=== PATIENT | female | born 1975 | race Caucasian/White ===

== ENCOUNTER 2016-07-22 13:03 | Emergency (ER) | payer MEDICAID ==
[~2016-07-22] VITALS: Ht 157.5 cm; Wt 74.6 kg
[~2016-07-22 13:03] MED LIST: TOPA100T8 PO; TOPI100 PO; Z.0.BCPILL PO
[2016-07-22 13:14] VITALS: BP 123/89; PULSE 86; RESP 18; TEMP 98.1; O2SAT 100
[2016-07-22] MEDS ORDERED: RELP40TA PO (14:07)
[2016-07-22] MEDS ORDERED: SEASTAB2 PO (14:07)
[2016-07-22] MEDS ORDERED: TOPA100T11 PO ×2 (14:07)
[2016-07-22] MEDS ORDERED: ORPH100T99 PO (14:35)
[2016-07-22] MEDS ORDERED: TYLETAB34 PO (14:35)
--- NOTE | 2016-07-22 14:39 | PD ---
HPI Chief Complaint: Headache Time Seen by Provider: 14:19 Travel History International Travel<30 days: No Contact w/Intl Traveler<30days: No Traveled to known affect area: No History of Present Illness HPI This patient complains of brief sharp shooting pains in the right side of her neck radiating up past her ear into her head. He literally lasts one or 2 seconds and resolves. Has been coming and going since last night. No injury. No fever. Symptoms severity is moderate. No alleviating factors PFSH Past Medical History Hx Anticoagulant Therapy: No Arthritis: No Asthma: No Autoimmune Disease: No Anxiety: No Depression: No Heart Rhythm Problems: No Cancer: No Cardiovascular Problems: No High Cholesterol: No Chemotherapy: No Chest Pain: No Congestive Heart Failure: No COPD: No Diabetes: No Diminished Hearing: No Endocrine: No Gastrointestinal Disorders: No GERD: No Genitourinary: No Headaches: No Hiatal Hernia: No Heparin Induced Thrombocytopen: No Hypertension: No Immune Disorder: No Implanted Vascular Access Dvce: No Kidney Stones: No Medical other: Yes (ITP) Musculoskeletal: No Neurologic: No Psychiatric: No Reproductive: No Respiratory: No Migraines: Yes Radiation Therapy: No Renal Failure: No Seizures: No Sickle Cell Disease: No Sleep Apnea: No Thyroid Disease: No Ulcer: No ?: Not LMP: Last week : 2 Para: 1 Miscarriage: 1 : 0 Past Surgical History Abdominal Surgery: No AICD: No Arteriovenous Shunt: No Cardiac Surgery: No Ear Surgery: No Endocrine Surgery: No Eye Surgery: No Genitourinary Surgery: No Gynecologic Surgery: No Insulin Pump: No Joint Replacement: No Neurologic Surgery: No Pacemaker: No Thoracic Surgery: No Other Surgery: No Social History Alcohol Use: No Tobacco Use: No Substance Use: No Allergies-Medications (Allergen,Severity, Reaction): Coded Allergies: No Known Allergies (Verified , 07/22/16) Reported Meds & Prescriptions Reported Meds & Active Scripts Active Tylenol-Codeine #3 (Acetaminophen-Codeine) 300-30 mg Tab 1 Tab PO Q6HR PRN Orphenadrine CR (Orphenadrine Citrate) 100 Mg Tab 100 Mg PO Q12HR Reported Relpax (Eletriptan) 40 Mg Tab 40 Mg PO ONCE PRN Topamax (Topiramate) 100 Mg Tab 150 Mg PO DAILY Topamax (Topiramate) 100 Mg Tab 100 Mg PO HS Seasonique (Levonorgestrel-Ethinyl Estradiol) 0.15-0.03-0.01 Mg Tab 1 Tab PO DAILY Review of Systems General / Constitutional: No: Fever HENT: Positive: Headaches Cardiovascular: No: Chest Pain or Discomfort Respiratory: No: Cough Physical Exam Narrative NEUROLOGICAL: Awake and alert. Pupils are equal round and reactive. Motor and sensory grossly within normal limits. Five out of 5 muscle strength in all muscle groups. Normal speech. NECK: Symmetrical appearance, midline trachea. No mass or crepitus. Thyroid without enlargement, tenderness, or mass. SKIN: Inspection shows no rash or ulcers. Palpation shows no induration or nodules. Data Data Last Documented VS Vital Signs Date Time Temp Pulse Resp B/P Pulse Ox O2 Delivery O2 Flow Rate FiO2 07/22/16 14:01 16 07/22/16 13:14 98.1 86 123/89 100 Orders Ketorolac Inj (Toradol Inj) (07/22/16 14:45) [facility] Medical Decision Making Medical Screen Exam Complete: Yes Emergency Medical Condition: Yes Medical Record Reviewed: Yes Differential Diagnosis Peripheral neuropathy, cluster headache, migraine Narrative Course I have reviewed the patient's electronic medical record. Patient is neurologically intact. No red flags to suggest emergent imaging is indicated This is a very atypical headache Sounds like neuropathic pain Gave her Toradol injection with prescription for both Tylenol 3 with codeine and Norflex Recommend primary care follow-up Diagnosis Primary Impression: Neuropathic pain Additional Instructions: The patient was advised to follow up with their physician and return if they worsen. The patient was warned about potential sedation for the medications they will receive on prescription. Med/Other Pt SpecificInfo: Prescription(s) given Scripts Acetaminophen-Codeine (Tylenol-Codeine #3)300-30 mg Tab1 Tab PO Q6HR PRN (PAIN) #15 TAB Ref 0 Prov:Obi House MD 07/22/16 Orphenadrine ER 12 HR (Orphenadrine CR)100 Mg [id number] Mg PO Q12HR #10 TAB Ref 0 Prov:Obi House MD 07/22/16 Disposition: 01 DISCHARGE HOME Condition: Stable Obi House MD Jul 22, 2016 14:39
[2016-07-22] MEDS ORDERED: KETOROLAC TROMETHAMINE 60 MG/2 ML (IM) VIAL IM ONE (14:45)
[2016-07-22 14:52] VITALS: BP 110/71
[2016-09-16] MEDS ORDERED: RELP40TA PO ×2 (13:36→13:42)
[2016-09-16] MEDS ORDERED: CITA20TA4 PO ×2 (13:39→13:42)
[2016-09-16] MEDS ORDERED: SUVO1TAB2 PO ×2 (13:40→13:42)
[2016-09-24] MEDS ORDERED: TOPA100T11 PO (14:10)
[2016-10-01] MEDS ORDERED: TOPI200 PO (14:42)
[2016-10-01] MEDS ORDERED: TOPA50TA7 PO (14:44)
[2016-10-16] MEDS ORDERED: SUMA50TA2 PO (13:56)
== END 2016-07-22 14:58 | disposition home or self-care (01) ==
LOC: PHED 13:03
DX: G62.9 Polyneuropathy, unspecified (principal)
CPT/HCPCS: 96372; 99283; J1885

== ENCOUNTER 2016-09-07 20:13 | Emergency (ER) | payer MEDICAID ==
[~2016-09-07] VITALS: Ht 157.5 cm; Wt 77.0 kg
[~2016-09-07 20:13] MED LIST changes: +ORPH100T99 PO; +RELP40TA PO; +SEASTAB2 PO; +TOPA100T11 PO; -TOPA100T8 PO; -TOPI100 PO; +TYLETAB34 PO; -Z.0.BCPILL PO
[2016-09-07 20:29] VITALS: BP 137/89; PULSE 86; RESP 18; TEMP 98.5; O2SAT 100
[2016-09-07] MEDS ORDERED: KETOROLAC TROMETHAMINE 30 MG/ML (IVP) VIAL IV PUSH ONE (21:30)
[2016-09-07] MEDS ORDERED: SODIUM CHLORIDE 0.9% FLUSH 10 ML FLUSH IVF PRN (21:30)
--- NOTE | 2016-09-07 21:46 | PD ---
HPI Chief Complaint: Headache Time Seen by Provider: 21:15 Travel History International Travel<30 days: No Contact w/Intl Traveler<30days: No Traveled to known affect area: No History of Present Illness HPI Patient is a 41-year-old female presents emergency department for evaluation of scalp pain. Patient states that she's had pain from the occipital region radiating around the right side of her scalp as well as down the right side of her neck. 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 She is not followed up with anyone else this has not recurred since initial visit May. Of note patient does have a history of ITP but denies any focalized weakness blurred vision blood in the stool easy bleeding or easy bruising. PFSH Past Medical History Hx Anticoagulant Therapy: No Arthritis: No Asthma: No Autoimmune Disease: No Anxiety: No Depression: No Heart Rhythm Problems: No Cancer: No Cardiovascular Problems: No High Cholesterol: No Chemotherapy: No Chest Pain: No Congestive Heart Failure: No COPD: No Diabetes: No Diminished Hearing: No Endocrine: No Gastrointestinal Disorders: No GERD: No Genitourinary: No Headaches: No Hiatal Hernia: No Heparin Induced Thrombocytopen: No Hypertension: No Immune Disorder: No Implanted Vascular Access Dvce: No Kidney Stones: No Musculoskeletal: No Neurologic: No Psychiatric: No Reproductive: No Respiratory: No Migraines: Yes Radiation Therapy: No Renal Failure: No Seizures: No Sickle Cell Disease: No Sleep Apnea: No Thyroid Disease: No Ulcer: No ?: Not : 2 Para: 1 Miscarriage: 1 : 0 Past Surgical History Abdominal Surgery: No AICD: No Arteriovenous Shunt: No Cardiac Surgery: No Ear Surgery: No Endocrine Surgery: No Eye Surgery: No Genitourinary Surgery: No Gynecologic Surgery: No Insulin Pump: No Joint Replacement: No Neurologic Surgery: No Pacemaker: No Thoracic Surgery: No Other Surgery: No Social History Alcohol Use: No Tobacco Use: No Substance Use: No Allergies-Medications (Allergen,Severity, Reaction): Coded Allergies: No Known Allergies (Verified , 09/07/16) Reported Meds & Prescriptions Reported Meds & Active Scripts Active Tylenol-Codeine #3 (Acetaminophen-Codeine) 300-30 mg Tab 1 Tab PO Q6HR PRN Orphenadrine CR (Orphenadrine Citrate) 100 Mg Tab 100 Mg PO Q12HR Reported Relpax (Eletriptan) 40 Mg Tab 40 Mg PO ONCE PRN Topamax (Topiramate) 100 Mg Tab 150 Mg PO DAILY Topamax (Topiramate) 100 Mg Tab 100 Mg PO HS Seasonique (Levonorgestrel-Ethinyl Estradiol) 0.15-0.03-0.01 Mg Tab 1 Tab PO DAILY Review of Systems Except as stated in HPI: all other systems reviewed are Neg Physical Exam Narrative GENERAL: Well-developed well-nourished in no apparent distress SKIN: Focused skin assessment warm/dry. HEAD: Atraumatic. Normocephalic. There is some tenderness to the palpation of the occipital scalp which produces a spasm of pain which lasts only for a few seconds. Patient states is consistent with her pain. EYES: Pupils equal and round. No scleral icterus. No injection or drainage. ENT: No nasal bleeding or discharge. Mucous membranes pink and moist. NECK: Trachea midline. No JVD. CARDIOVASCULAR: Regular rate and rhythm. No murmur appreciated. RESPIRATORY: No accessory muscle use. Clear to auscultation. Breath sounds equal bilaterally. GASTROINTESTINAL: Abdomen soft, non-tender, nondistended. Hepatic and splenic margins not palpable. MUSCULOSKELETAL: No obvious deformities. No clubbing. No cyanosis. No edema. NEUROLOGICAL: Awake and alert. Cranial nerves II through XII grossly intact and nonfocal, 5 out of 5 strength in all 4 extremities, pulses motor and sensory distally intact and equal bilaterally. Cerebellar testing normal. PSYCHIATRIC: Appropriate mood and affect; insight and judgment normal. Data Data Last Documented VS Vital Signs Date Time Temp Pulse Resp B/P Pulse Ox O2 Delivery O2 Flow Rate FiO2 09/07/16 22:24 88 18 130/80 98 09/07/16 21:56 Room Air 09/07/16 20:29 98.5 Orders Complete Blood Count With Diff (09/07/16 21:21) Basic Metabolic Panel (Bmp) (09/07/16 21:21) Ecg Monitoring (09/07/16 21:21) Iv Access Insert/Monitor (09/07/16 21:21) Oximetry (09/07/16 21:21) Sodium Chloride 0.9% Flush (Ns Flush) (09/07/16 21:30) Ketorolac Inj (Toradol Inj) (09/07/16 21:30) Labs Laboratory Tests Test 09/07/16 21:41 White Blood Count 7.1 TH/MM3 Red Blood Count 4.71 MIL/MM3 Hemoglobin 13.9 GM/DL Hematocrit 41.8 % Mean Corpuscular Volume 88.6 FL Mean Corpuscular Hemoglobin 29.5 PG Mean Corpuscular Hemoglobin 33.3 % Concent Red Cell Distribution Width 12.3 % Platelet Count 368 TH/MM3 Mean Platelet Volume 7.4 FL Neutrophils (%) (Auto) 48.9 % Lymphocytes (%) (Auto) 38.4 % Monocytes (%) (Auto) 9.1 % Eosinophils (%) (Auto) 2.7 % Basophils (%) (Auto) 0.9 % Neutrophils # (Auto) 3.5 TH/MM3 Lymphocytes # (Auto) 2.7 TH/MM3 Monocytes # (Auto) 0.6 TH/MM3 Eosinophils # (Auto) 0.2 TH/MM3 Basophils # (Auto) 0.1 TH/MM3 CBC Comment DIFF FINAL Differential Comment Sodium Level 146 MEQ/L Potassium Level 3.9 MEQ/L Chloride Level 113 MEQ/L Carbon Dioxide Level 21.8 MEQ/L Anion Gap 11 MEQ/L Blood Urea Nitrogen 16 MG/DL Creatinine 0.84 MG/DL Estimat Glomerular Filtration 75 ML/MIN Rate Random Glucose 81 MG/DL Calcium Level 8.5 MG/DL MDM Medical Decision Making Medical Screen Exam Complete: Yes Emergency Medical Condition: Yes Differential Diagnosis Scalp pain, migraine, tension headache, cluster headache. Narrative Course 41-year-old female presents emergency Department with scalp pain. She does have a history of migraines but states this feels different. Her pain is reproducible by palpation of her scalp. She also does have a history of ITP. Platelet count is within normal limits. She is given pain medicine in the emergency department and this relieved her pain. Discussed with her need follow -up with a pain management physician or neurologist for possible trigger point injections. 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 There is no indication for CT imaging at this time. She is stable for discharge. Diagnosis Primary Impression: Scalp pain Referrals: Dannie Finney MD Disposition: 01 DISCHARGE HOME Condition: Stable Osmani Matta MD Sep 07, 2016 21:46
[2016-09-07 21:52] LABS: AUTOMATED NEUTROPHIL # 3.5 TH/MM3 (1.8-7.7); BASOPHIL # 0.1 TH/MM3 (0-0.2); BASOPHIL % 0.9 % (0.0-2.0); EOSINOPHIL # 0.2 TH/MM3 (0-0.4); EOSINOPHIL % 2.7 % (0.0-4.0); HEMATOCRIT 41.8 % (35.0-46.0); HEMO FLAGS DIFF FINAL; LYMPH % 38.4 % (9.0-44.0); LYMPHOCYTE # 2.7 TH/MM3 (1.0-4.8); MEAN CELL VOLUME 88.6 FL (80.0-100.0); MEAN CORPUSCULAR HEMOGLOBIN 29.5 PG (27.0-34.0); MEAN CORPUSCULAR HGB CONC 33.3 % (32.0-36.0); MONO % 9.1 % (0.0-8.0); NEUT % 48.9 % (16.0-70.0); PLATELET COUNT 368 TH/MM3 (150-450); RED BLOOD COUNT 4.71 MIL/MM3 (4.00-5.30); RED CELL DISTRIBUTION WIDTH 12.3 % (11.6-17.2); WHITE BLOOD COUNT 7.1 TH/MM3 (4.0-11.0)
[2016-09-07 21:56] VITALS: O2SAT 100
[2016-09-07 21:58] LABS: POTASSIUM 3.9 MEQ/L (3.5-5.1)
[2016-09-07 22:03] LABS: BICARBONATE 21.8 MEQ/L (21.0-32.0)
[2016-09-07 22:24] VITALS: BP 130/80
[2016-09-16] MEDS ORDERED: RELP40TA PO ×2 (13:36→13:42)
[2016-09-16] MEDS ORDERED: CITA20TA4 PO ×2 (13:39→13:42)
[2016-09-16] MEDS ORDERED: SUVO1TAB2 PO ×2 (13:40→13:42)
[2016-09-24] MEDS ORDERED: TOPA100T11 PO (14:10)
[2016-10-01] MEDS ORDERED: TOPI200 PO (14:42)
[2016-10-01] MEDS ORDERED: TOPA50TA7 PO (14:44)
[2016-10-16] MEDS ORDERED: SUMA50TA2 PO (13:56)
== END 2016-09-07 22:54 | disposition home or self-care (01) ==
LOC: PHED 20:13
DX: R51 Headache (principal); M54.2 Cervicalgia; Z86.69 Personal history of other diseases of the nervous system and sense organs; Z86.2 Personal history of diseases of the blood and blood-forming organs and certain disorders involving the immune mechanism
CPT/HCPCS: 80048; 85025; 96374; 99283; J1885

== ENCOUNTER 2017-05-01 17:06 | Emergency (ER) | payer MEDICAID ==
[~2017-05-01] VITALS: Ht 157.5 cm; Wt 78.7 kg
[~2017-05-01 17:06] MED LIST changes: +BENZ100 PO; -ORPH100T99 PO; +OSEL75 PO; -RELP40TA PO; -SEASTAB2 PO; +SUMA50TA2 PO; -TOPA100T11 PO; +TOPA50TA7 PO; +TOPI200 PO; -TYLETAB34 PO
[2017-05-01 17:15] VITALS: BP 123/77; PULSE 103; RESP 16; TEMP 99.9; O2SAT 98
--- NOTE | 2017-05-01 17:28 | PD ---
HPI Chief Complaint: Cold / Flu Symptoms Time Seen by Provider: 17:19 Travel History International Travel<30 days: No Contact w/Intl Traveler<30days: No Traveled to known affect area: No History of Present Illness HPI 41-year-old female presents the emergency department with history of positive flu test on Friday on Tamiflu, complaining of worsening chest congestion, cough, and wheezing. She states dyspnea with exertion over the last 24 hours. She states her cough is nonproductive. Patient is a nonsmoker and has no history of asthma or bronchitis requiring an inhaler in the past. Patient sent off and on fevers but overall feels improved in regards to the flu other than the cough. She has no nausea or vomiting. She has no abdominal pain. She has no known drug allergies. PFSH Past Medical History Hx Anticoagulant Therapy: No Arthritis: No Asthma: No Autoimmune Disease: No Anxiety: No Depression: No Heart Rhythm Problems: No Cancer: No Cardiovascular Problems: No High Cholesterol: No Chemotherapy: No Chest Pain: No Congestive Heart Failure: No COPD: No Diabetes: No Diminished Hearing: No Endocrine: No Gastrointestinal Disorders: No GERD: No Genitourinary: No Headaches: No Hiatal Hernia: No Heparin Induced Thrombocytopen: No Hypertension: No Immune Disorder: No Implanted Vascular Access Dvce: No Kidney Stones: No Musculoskeletal: No Neurologic: No Psychiatric: No Reproductive: No Respiratory: No Migraines: Yes Radiation Therapy: No Renal Failure: No Seizures: No Sickle Cell Disease: No Sleep Apnea: No Thyroid Disease: No Ulcer: No ?: Not LMP: no menses has a IUD : 2 Para: 1 Miscarriage: 1 : 0 Past Surgical History Abdominal Surgery: No AICD: No Arteriovenous Shunt: No Cardiac Surgery: No Ear Surgery: No Endocrine Surgery: No Eye Surgery: No Genitourinary Surgery: No Gynecologic Surgery: No Insulin Pump: No Joint Replacement: No Neurologic Surgery: No Pacemaker: No Thoracic Surgery: No Other Surgery: No Social History Alcohol Use: No Tobacco Use: No Substance Use: No Allergies-Medications (Allergen,Severity, Reaction): Coded Allergies: No Known Allergies (Verified Allergy, Unknown, 05/01/17) Reported Meds & Prescriptions Reported Meds & Active Scripts Active Ventolin Hfa 18 GM Inh (Albuterol Sulfate) 90 Mcg/Act Aer 2 Puff INH Q4-6H PRN Prednisone 20 Mg Tab 20 Mg PO BID 5 Days Azithromycin 500 Mg Tab 500 Mg PO DAILY Tamiflu (Oseltamivir Phosphate) 75 Mg Cap 75 Mg PO BID Topamax (Topiramate) 200 Mg Tab 200 Mg PO BID Review of Systems General / Constitutional: Positive: Fever, Chills Eyes: No: Visual changes HENT: Positive: Rhinitis, Rhinorrhea, Congestion, No: Headaches, Vertigo, Lightheadedness, Sore Throat, Nosebleed, Neck Stiffness, Neck Pain, Earache Cardiovascular: No: Chest Pain or Discomfort Respiratory: Positive: Cough, Shortness of Breath, Wheezing, Night Sweats, No: Sneezing, Orthopnea, Hemoptysis, Stridor, Pleuritic Pain Gastrointestinal: No: Nausea, Vomiting, Diarrhea, Abdominal Pain Genitourinary: No: Dysuria Musculoskeletal: No: Pain Skin: No Rash Neurologic: No: Weakness Psychiatric: No: Depression Endocrine: No: Polydipsia Hematologic/Lymphatic: No: Easy Bruising Physical Exam Narrative GENERAL: Patient appears in mild distress. SKIN: Warm and dry. Normal color. Normal turgor. No rash. HEAD: Atraumatic. Normocephalic. EYES: Pupils equal and round. No scleral icterus. No injection or drainage. ENT: No nasal bleeding or discharge. Mucous membranes pink and moist. TMs are clear bilaterally. Pharynx is clear. Airway is patent.. NECK: Trachea midline. Supple nontender. CARDIOVASCULAR: Regular rate and rhythm. RESPIRATORY: No accessory muscle use. Moderate Diffuse wheezes throughout to auscultation. No rales or rhonchi appreciated. Breath sounds equal bilaterally. GASTROINTESTINAL: Abdomen soft, non-tender, nondistended. Hepatic and splenic margins not palpable. MUSCULOSKELETAL: Extremities without clubbing, cyanosis, or edema. No obvious deformities. NEUROLOGICAL: Awake and alert. No obvious cranial nerve deficits. Motor grossly within normal limits. Five out of 5 muscle strength in the arms and legs. Normal speech. PSYCHIATRIC: Appropriate mood and affect; insight and judgment normal. Data Data Last Documented VS Vital Signs Date Time Temp Pulse Resp B/P (MAP) Pulse Ox O2 Delivery O2 Flow Rate FiO2 05/01/17 17:15 99.9 103 16 123/77 (92) 98 Orders Orders Chest, Pa & Lat (05/01/17 17:23) Albuterol-Ipratropium Neb (Duoneb Neb) (05/01/17 17:30) Prednisone (Deltasone) (05/01/17 17:30) Ed Discharge Order (05/01/17 18:03) [facility] Medical Decision Making Medical Screen Exam Complete: Yes Emergency Medical Condition: Yes Differential Diagnosis Influenza. Bronchitis. Wheezing. Pneumonia. Narrative Course Patient is medically stable at time of exam. Chest x-ray PA and lateral are ordered. Patient is given 60 mg prednisone by mouth. Patient is given DuoNeb 1. Chest x-ray shows no acute pneumonia. Patient felt much improved after the above treatment. Patient is given azithromycin 500 mg daily for the next 5 days. Patient is continued on prednisone 20 mg twice a day for 5 days. Patient is given albuterol metered-dose inhaler 2 puffs every 4-6 hours. Patient follow-up with primary care physician as needed. Diagnosis Primary Impression: Acute wheezy bronchitis Additional Impression: Influenza Referrals: Primary Care Physician Patient Instructions: Acute Bronchitis (ED), General Instructions, How to Use a Metered-Dose Inhaler (ED), Prednisone (By mouth) Additional Instructions: Chest x-ray shows no acute pneumonia. Patient felt much improved after the above treatment. Patient is given azithromycin 500 mg daily for the next 5 days. Patient is continued on prednisone 20 mg twice a day for 5 days. Patient is given albuterol metered-dose inhaler 2 puffs every 4-6 hours. Patient follow-up with primary care physician as needed. Med/Other Pt SpecificInfo: Prescription(s) given Scripts Albuterol 18 GM Inh (Ventolin Hfa 18 GM Inh) 90 Mcg/Act Aer 2 PUFF INH Q4-6H Y for SHORTNESS OF BREATH, #1 INHALER 0 Refills Prov: Obi House MD 05/01/17 Prednisone (Prednisone) 20 Mg Tab 20 MG PO BID for 5 Days, #10 TAB 0 Refills Prov: Obi House MD 05/01/17 Azithromycin (Azithromycin) 500 Mg Tab 500 MG PO DAILY for Infection, #5 TAB 0 Refills Prov: Obi House MD 05/01/17 Disposition: 01 DISCHARGE HOME Condition: Stable Trevon Dubon May 01, 2017 17:28
[2017-05-01] MEDS ORDERED: RESP: ALBUTEROL 2.5 MG/IPRATROPIUM 0.5 MG NEB (SCH) INH ONE (17:30)
[2017-05-01] MEDS ORDERED: predniSONE 20 MG TAB PO ONE (17:30)
--- NOTE | 2017-05-01 17:54 | RADRPT ---
EXAM DATE/TIME: 05/01/2017 17:32 [place] COMPARISON: CHEST PA & LAT, August 21, 2014, 13:47. INDICATIONS : Flu like symptoms since Friday. Cough and short of breath. MEDICAL HISTORY : None. SURGICAL HISTORY : None. ENCOUNTER: Initial ACUITY: 3 days PAIN SCORE: 0/10 LOCATION: Bilateral chest FINDINGS: PA and lateral views of the chest demonstrate normal size cardiac silhouette. There are linear opacit ies at both lung bases. No effusion, consolidation, or pneumothorax is identified. Bones and soft tis sues demonstrate no acute finding. CONCLUSION: No acute cardiopulmonary abnormality is identified. Milton Prieto MD on May 01, 2017 at 17:45 Board Certified Radiologist. This report was verified electronically.
[2017-05-01] MEDS ORDERED: AZIT500T2 PO (18:03)
[2017-05-01] MEDS ORDERED: PRED20 PO (18:03)
[2017-05-01] MEDS ORDERED: VENTAER INH (18:03)
[2017-05-06] MEDS ORDERED: TOPI200 PO (16:05)
[2017-05-07] MEDS ORDERED: TOPI100 PO (10:30)
== END 2017-05-01 18:16 | disposition home or self-care (01) ==
LOC: PHEFT 17:06
DX: J20.9 Acute bronchitis, unspecified (principal); J11.1 Influenza due to unidentified influenza virus with other respiratory manifestations
CPT/HCPCS: 71020; 94664; 99284; J7512